=== PATIENT | male | born 1950 | race Caucasian/White ===

== ENCOUNTER 2018-05-10 21:03 | Emergency (ER) | payer MEDICARE, BC ==
[~2018-05-10] VITALS: Ht 172.7 cm; Wt 72.6 kg
--- NOTE | 2018-05-10 21:03 | NUR ---
BIBFAMILY POSSIBLE SYNCOPAL EPISODE X 30MINS [employer] AT [employer]. N/V. VSS NO ACUTE DISTRESS NOTED AT THIS TIME. SKIN RED AND BLANCHY GENERALIZED BUT COULD BE NORMAL FOR THIS PATIENT, AND DRY. WILL CONTINUE TO MONITOR FOR ANY CHANGES DURING THE SHIFT.
--- NOTE | 2018-05-10 21:04 | NUR ---
ER MD PATEL AT BEDSIDE
[2018-05-10] MEDS ORDERED: IV NS 0.9% 1,000 ML BAG IV ONE (21:30)
[2018-05-10 21:40] LABS: BASOPHILS # (AUTO) 0.1 /CMM (0.0-0.2); BASOPHILS % (AUTO) 1.1 % (0.0-2.0); HEMATOCRIT 46 % (39-51); HEMOGLOBIN 15.4 g/dL (13.5-17.5); LYMPHOCYTES # (AUTO) 2.4 /CMM (0.8-4.8); LYMPHOCYTES % (AUTO) 28.1 % (20.0-44.0); MEAN CORPUSCULAR HGB CONC 34 g/dl (31.0-36.0); MEAN CORPUSCULAR VOLUME 99 fL (80-96); MONOCYTES # (AUTO) 1.4 /CMM (0.1-1.30); MONOCYTES % (AUTO) 16.1 % (2.0-12.0); NEUTROPHILS # (AUTO) 4.3 /CMM (1.8-8.9); NEUTROPHILS % (AUTO) 50.7 % (43.0-81.0); PLATELET COUNT (AUTO) 231 /CMM (150-450); RED BLOOD CELL COUNT(AUTO) 4.61 MIL/uL (4.5-6.0); WHITE BLOOD COUNT (AUTO) 8.5 K/uL (4.3-11.0)
--- NOTE | 2018-05-10 21:40 | NUR ---
BLOOD SENT TO LAB
--- NOTE | 2018-05-10 21:40 | NUR ---
XRAY AT BEDSIDE
--- NOTE | 2018-05-10 21:43 | NUR ---
PT OFF TO CT
[2018-05-10 21:49] LABS: CALCIUM, SERUM 8.6 mg/dL (8.5-10.1); CARBON DIOXIDE 27 mmol/L (21-32); CHLORIDE 104 mmol/L (98-107); GLUCOSE 131 mg/dL (74-106); POTASSIUM 3.4 mmol/L (3.5-5.1); SODIUM SERUM 139 mmol/L (136-145); UREA NITROGEN, BLOOD 13 mg/dL (7-18)
--- NOTE | 2018-05-10 21:49 | NUR ---
PATIENT BACK FROM CT
[2018-05-10 21:52] LABS: INR 0.89 (0.85-1.15)
[2018-05-10 21:56] LABS: ALANINE AMINOTRANSFERASE 51 U/L (12-78); ALKALINE PHOSPHATASE 44 U/L (46-116); ASPARTATE AMINOTRANSFERASE 9 U/L (15-37); BILIRUBIN,TOTAL 0.3 mg/dL (0.2-1.0); TOTAL PROTEIN, SERUM 7.2 g/dL (6.4-8.2)
[2018-05-10 21:57] LABS: TROPONIN I < 0.017 ng/mL (0.00-0.056)
--- NOTE | 2018-05-10 22:08 | NUR ---
DAUGHTER AT BEDSIDE
[2018-05-10] MEDS ORDERED: ONDANSETRON HCL/PF 4 MG/2 ML VIAL ONE (22:22)
[2018-05-10] MEDS ORDERED: ONDANSETRON HCL/PF - ER 4 MG/2 ML VIAL IV ONE (22:30)
[2018-05-10 22:31] VITALS: BP 111/65
[2018-05-10 22:54] LABS: NEUTROPHILS % (MANUAL) 61 (42-76)
[2018-05-10 22:55] LABS: EOSINOPHILS % (MANUAL) 2 % (0-4); LYMPHOCYTES % (MANUAL) 21 % (16-48); MONOCYTES % (MANUAL) 16 % (0-11.0)
== END 2018-05-10 22:32 | disposition home or self-care (01) ==
LOC: ER 21:07
DX: R55 Syncope and collapse (principal); G47.30 Sleep apnea, unspecified; E78.00 Pure hypercholesterolemia, unspecified; L40.9 Psoriasis, unspecified; R42 Dizziness and giddiness
CPT/HCPCS: 36415; 70450; 71045; 80048; 80076; 82962; 84484; 85025; 85730; 93005; 96361; 96374; 99285; J2405 ×2; J7030; 82140-TC; A4606; G0480; Z7610